=== PATIENT | male | born 1975 | race Two or more races ===

== ENCOUNTER 2016-10-24 17:30 | Emergency (ER) | payer SELFPAY ==
[~2016-10-24] VITALS: Ht 160 cm; Wt 81.6 kg
--- NOTE | ~2016-10-24 | CT2 ---
[facility] A Service of [facility] & [facility] RADIOLOGY TEXT RESULTS PATIENT: LISE BERNARDO LOCATION: [facility] : 77 UNIT #: [id number] AGE: [address]: Fortunato Panda MD SEX: M ORDER DR: [id number] [facility]. [place], [place] [address] [id number] MR#: [id number] Acc #: [id number] NAME: LISE BERNARDO : 1975 SEX: M STUDY DATE/TIME: 10/24/2016 19:48 UNIT: [facility] ROOM: STUDY DESCRIPTION: CT Abd and Pelv W Cont Attending Physician: Fortunato Panda M.D. Ordering Physician: Fortunato Panda M.D. Primary Care Physician: No Primary Care Physician MEDICAL IMAGING REPORT This report is preliminary unless electronic signature is present EXAM CT abdomen and pelvis with IV contrast. COMPARISON None. INDICATIONS 41-year-old male with left lower quadrant abdominal pain since eating yesterday. FINDINGS Axial CT imaging of the abdomen and pelvis was performed after IV administration of 100 mL of Isovue-370. Coronal and sagittal reformats were constructed. This CT exam was performed with one or more of the following radiation dose reduction techniques: automatic exposure control, adjustment of mA and/or kV according to patient size, and iterative reconstruction. 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 The bones are otherwise unremarkable. No acute findings in the lower chest. Findings suggestive of hepatic steatosis. Enhancement of the liver at the level of the gallbladder fossa likely reflects accessory arterial supply to the gallbladder. Gallbladder is otherwise unremarkable. Hepatomegaly with hepatic length of 20.8 cm. No evidence of venous thrombosis. The abdominal aorta is normal in course and caliber, with patency of its main branches. Right renal artery courses anterior to the IVC. The urinary bladder is unremarkable. Minimal central prostatic calcification is a nonspecific finding perhaps related to remote prostatitis. No evidence of bowel obstruction. No adenopathy in the abdomen or pelvis. There is fat stranding adjacent to the inferior left colon where there is an apparent inflamed diverticulum, and there is associated thickening of the inferior descending colon in this location. There are other diverticula seen throughout the left colon including STS. [facility] A Service of [facility] RADIOLOGY TEXT RESULTS PATIENT: LISE BERNARDO LOCATION: [facility] : [birth year] UNIT #: [id number] AGE: [address]: Fortunato Panda MD SEX: M ORDER DR: involving the splenic flexure. No evidence of acute appendicitis. There is trace free fluid in the inferior left paracolic gutter likely due to acute diverticulitis. No pneumoperitoneum. IMPRESSION 1. Acute uncomplicated diverticulitis involving the inferior-most left colon. There are other diverticula seen throughout the left colon. 2. Findings most consistent with steatosis. There is hepatomegaly. No evidence of cirrhosis. 3. Minimal prostatic calcifications, nonspecific finding perhaps related to remote prostatitis. 4. 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 This is a nonspecific finding. 5. 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 Dictated by... Angel Gill M.D. THIS IS AN ELECTRONICALLY VERIFIED REPORT Angel Gill M.D. at 11/01/2016 7:53 PM Felecia TD: 10/25/2016 15:12 JOB #: [id number] MEDICAL IMAGING REPORT Page 1 of 1 COPY
[2016-10-24 18:54] LABS: BASOPHIL% 0.4 % (0-2.5); EOSINOPHIL# 0.3 X10e3 (0-0.7); EOSINOPHIL% 2.4 % (0.0-7.0); HEMATOCRIT 41.8 % (38.0-50.0); HEMOGLOBIN 14.1 gm/dL (13.0-16.0); LYMPHOCYTE# 2.1 X10e3 (1.0-3.5); LYMPHOCYTE% 18.3 % (17.0-45.0); MEAN CELL VOLUME 87.7 FL (83-96); MEAN CORPUSCULAR HEMOGLOBIN 29.6 PG (28-34); MEAN CORPUSCULAR HGB CONC 33.8 g/dL (30-36); MEAN PLATELET VOLUME 8.4 FL (6.5-11.5); MONOCYTE% 9.2 % (3.0-12.0); NEUTROPHIL# 7.9 X10e3 (1.5-7.1); NEUTROPHIL% 69.7 % (40-75); PLATELET COUNT 216 X10e3 (140-420); RED BLOOD COUNT 4.76 X10e (3.90-5.60); RED CELL DISTRIBUTION WIDTH 14.4 % (11.0-15.5); WHITE BLOOD COUNT 11.4 X10e3 (4.0-10.5)
[2016-10-24 18:56] LABS: DIFF IND NO
[2016-10-24 19:21] LABS: ALBUMIN SERUM 4.2 g/dL (3.5-5.0); BILIRUBIN, DIRECT 0.1 mg/dL (0.0-0.2); BILIRUBIN,INDIRECT 0.6 mg/dL (0.0-0.9); BILIRUBIN,TOTAL 0.7 mg/dL (0.2-2.0); BUN/CREATININE RATIO 16.25; CREATININE SERUM 0.8 mg/dL (0.6-1.4); GLOM FILT RATE Estimated 111.8 mL/min (>60); POTASSIUM 3.7 mmol/L (3.5-5.1); PROTEIN TOTAL SERUM 7.9 g/dL (6.0-8.3)
[2016-10-24 20:16] LABS: URINE SOURCE CLEAN CATCH
[2016-10-24 20:29] LABS: URINE APPEARANCE CLEAR; URINE BILIRUBIN NEG (NEG); URINE BLOOD NEG (NEG); URINE COLOR YELLOW; URINE GLUCOSE NEG (NEG); URINE KETONE NEG (NEG); URINE LEUKOCYTE ESTERASE TRACE (NEG); URINE NITRATE NEG (NEG); URINE PH 5.5 (5-8); URINE PROTEIN NEG (NEG); URINE SPECIFIC GRAVITY 1.024 (1.003-1.035)
[2016-10-24 20:32] LABS: URINE BACTERIA AUWI NEG (NEGATIVE); URINE SQUAMOUS EPITHELIAL CELL NONE SEEN /[HPF]
[2016-10-24 20:36] LABS: CULTURE INDICATED? NO
== END 2016-10-24 22:39 | disposition home or self-care (01) ==
LOC: CFTX 17:30 → CED 17:30
PROVIDERS: Nurse Practitioner
DX: K57.32 Diverticulitis of large intestine without perforation or abscess without bleeding (principal)
CPT/HCPCS: 36415; 74177; 80048; 80076; 81003; 82150; 83690; 85025; 96361; 96365; 96375; 99284; G0480; J1885; Q9967